=== PATIENT | female | born 1975 | race Caucasian/White ===

== ENCOUNTER → 2018-11-04 | Outpatient (CLI) | payer BC ==
--- NOTE | 2018-11-04 12:35 | ECHOS ---
STRESS ECHOCARDIOGRAM INDICATIONS: Chest pain. MEDICATIONS: Synthroid BASELINE HEART RATE: 82 BASELINE BLOOD PRESSURE: 117/64 MAXIMUM HEART RATE: 172 MAXIMUM BLOOD PRESSURE: 135/61 85% MPHR: 152 100% MPHR: 179 METS: 10.1 MAXIMUM STAGE REACHED: 3 TOTAL EXERCISE TIME: 9:00 CLINICAL INFORMATION: Heart rate 82, pressure is 117/64 mmHg. Baseline EKG showed sinus mechanism. The patient exercised on the treadmill according to [place] protocol for a total of 9 minutes and achieved 10.1 METS. Max heart rate was 172, which is about 96% of maximum predicted heart rate. Maximum blood pressure was 135/61 mmHg. Clinically, the patient did not have any symptoms of chest pain or chest discomfort during the testing or on recovery and the EKG did not show any significant ST or T-wave abnormalities concerning for ischemia. Echocardiogram images: On echocardiogram images from parasternal long axis view, parasternal short axis view, apical 4-chamber and apical 2-chamber views were obtained as the baseline images, at peak heart rate as well as on recovery. The echocardiogram images showed excellent augmentation in the left ventricular systolic function without any evidence of any wall motion abnormalities. CONCLUSION: 1. Excellent exercise tolerance. 2. Normal EKG in response to exercise. 3. Excellent augmentation in the blood pressure and heart rate in response to exercise. 4. Normal echocardiogram in response to exercise. 5. Essentially normal stress test for the patient. MMODL / IJN: [id number] /
== END ==
LOC: RADNMMAIN 09:13
PROVIDERS: ATTEND Family Medicine
DX: R07.89 Other chest pain (principal)
CPT/HCPCS: 93351

== ENCOUNTER → 2018-11-25 | Outpatient (CLI) | payer BC ==
--- NOTE | 2018-11-29 09:22 | MM ---
Reason for exam: screening (asymptomatic). Last mammogram was performed 10 years ago. History: Patient had first child at age 33. Family history of breast cancer in maternal aunt, breast cancer in maternal cousin at age 40, and breast cancer in paternal aunt. Taking hormonal contraceptives for 4 months. Physical Findings: A clinical breast exam by your physician is recommended on an annual basis and results should be correlated with mammographic findings. MG 3D Screening Mammo W/Cad Bilateral CC and MLO view(s) were taken. Prior study comparison: November 29, 2008, bilateral diagnostic digital mammog. The breast tissue is heterogeneously dense. This may lower the sensitivity of mammography. There is no discrete abnormality. ASSESSMENT: Negative, BI-RAD 1 RECOMMENDATION: Routine screening mammogram of both breasts in 1 year.
== END | disposition home or self-care (01) ==
LOC: RADMAMWWP 08:25
PROVIDERS: ATTEND Obstetrics & Gynecology
DX: Z12.31 Encounter for screening mammogram for malignant neoplasm of breast (principal); Z80.3 Family history of malignant neoplasm of breast
CPT/HCPCS: 77063; 77067

== ENCOUNTER → 2019-03-28 | Outpatient (CLI) | payer BC ==
--- NOTE | 2019-03-29 09:22 | USB ---
Reason for exam: clinical finding. History: Patient had first child at age 33. Family history of breast cancer in maternal aunt, breast cancer in maternal cousin at age 40, and breast cancer in paternal aunt. Taking hormonal contraceptives for 4 months. Physical Findings: Nurse did not find any significant physical abnormalities on exam. US Breast LT Left complete breast ultrasound includes all four quadrants, the retroareolar region and axilla. Finding demonstrates no cystic or solid lesion seen. No abnormality at the 12 o'clock palpable site. These results were verbally communicated with the patient and result sheet given to the patient on 03/28/19. ASSESSMENT: Benign, BI-RAD 2 RECOMMENDATION: Return to routine screening mammogram schedule for both breasts. Back on schedule for November 2019.
== END | disposition home or self-care (01) ==
LOC: RADUSWWP 14:48
PROVIDERS: ATTEND Obstetrics & Gynecology
DX: N63.20 Unspecified lump in the left breast, unspecified quadrant (principal)

== ENCOUNTER → 2020-03-22 | Outpatient (CLI) | payer BC ==
--- NOTE | 2020-03-25 10:05 | MM ---
Reason for exam: screening (asymptomatic). Last mammogram was performed 1 year and 4 months ago. History: Patient had first child at age 33. Family history of breast cancer in maternal aunt, breast cancer in maternal cousin at age 40, and breast cancer in paternal aunt. Took hormonal contraceptives for 1 year 4 months. Physical Findings: A clinical breast exam by your physician is recommended on an annual basis and results should be correlated with mammographic findings. MG Screening Mammo w CAD Bilateral CC and MLO view(s) were taken. Prior study comparison: November 25, 2018, bilateral MG 3d screening mammo w/cad. November 29, 2008, bilateral diagnostic digital mammog. The breast tissue is heterogeneously dense. This may lower the sensitivity of mammography. There is no discrete abnormality. No significant changes when compared with prior studies. ASSESSMENT: Negative, BI-RAD 1 RECOMMENDATION: Routine screening mammogram of both breasts in 1 year.
== END | disposition home or self-care (01) ==
LOC: RADMAMWWP 13:35
PROVIDERS: ATTEND Obstetrics & Gynecology
DX: Z12.31 Encounter for screening mammogram for malignant neoplasm of breast (principal)
CPT/HCPCS: 77067

== ENCOUNTER → 2020-08-29 | Outpatient (CLI) | payer BC ==
[2020-08-29 15:16] VITALS: BP 121/83; PULSE 85; RESP 16; TEMP 99; BMI 36.1
[2020-08-29 16:07] LABS: HCT 42.6 % (34.0-46.0); HGB 14.6 gm/dL (11.4-16.0); MCH 29.5 pg (25.0-35.0); MCHC 34.3 g/dL (31.0-37.0); MCV 85.8 fL (80.0-100.0); Mean Platelet Volume 6.8; Platelet Count 289 k/uL (150-450); RBC 4.96 m/uL (3.80-5.40); RDW 12.9 % (11.5-15.5); WBC 7.6 k/uL (3.8-10.6)
--- NOTE | 2020-08-29 16:52 | P.HPBAR ---
Bariatric H&P - History & Physicial H&P Date: 08/29/20 History & Physicial: Visit/CC: Initial Patient initial contact: Initial weight: 103.107 kg Initial weight in pounds: 227.31 Height: 5 ft 6.5 in Initial BMI: 36.1 Last weight: Current weight: 103.107 kg Current weight in pounds: 227.31 Current BMI: 36.1 [place] body weight (based on NIH guidelines): 60.101 kg Excess body weight loss: 0.0% The patient is a 45 year-old F who presents for Bariatric Assessment. [age] female presents with complaints of morbid obesity. She is interested in surgical weight loss. Patient has been considering weight loss surgery for many years. She went to a seminar first 2 years ago and then another recent seminar. The patient suffers from chronic knee and hip pain, urinary incontinence, reflu x. Takes antacids occasionally. No history of DVT or dysphagia. Surgical history in the abdomen include . No tobacco use. BMI 36.1. Review of Systems The patient denies any acute changes in vision or hearing, no dysphagia or odynophagia, no chest pain or shortness of breath, no dysuria or hematuria, no headache, no runny nose, no rectal bleeding or melena, no unexplained weight loss Past Medical History History of Any Multi-Drug Resistant Organisms: None Reported Smoking Status: Never smoker Surgical - Exam Vital Signs Temp Pulse Resp BP 99.0 F 85 16 121/83 08/29/20 15:05 08/29/20 15:05 08/29/20 15:05 08/29/20 15:05 Physical exam: General: Well-developed, well-nourished HEENT: Normocephalic, sclerae nonicteric Abdomen: Nontender, nondistended Extremities: No edema Neuro: Alert and oriented Results - Labs 08/29/20 15:40 Bariatric Assessment & Plan (1) Severe obesity Narrative/Plan: 45-year-old female with severe obesity. Risks and benefits of both sleeve gastrectomy and gastric bypass discussed in detail. Patient requires 3 month supervised weight loss. We'll tentatively plan EGD 2 months from now. Status: Acute Bariatric Checklist Checklist: Plan: Checklist: EGD: 1. Hiatal hernia: 2. H. Pylori: HgbA1c: Vitamin D: Smoking: Primary care physician referral: Martín Psychiatry clearance: Cardiology clearance: Sleep study: Diet journal: VTE risk score: VTE risk level: Rehab needs at discharge:
[2020-08-30 03:04] LABS: Albumin 4.4 g/dL (3.80-4.90); Albumin/Globulin Ratio 1.52 (1.60-3.17); Anion Gap 11.7 mmol/L (4.00-12.00); BUN/Creat Ratio 17.14 Ratio (12.00-20.00); Calcium 9.2 mg/dL (8.7-10.3); Carbon Dioxide 22.3 mmol/L (21.6-31.8); Globulin 2.9 g/dL (1.6-3.3); Non-African American GFR(CKD) 106.1 (60.0-200.0); Potassium 4.2 mmol/L (3.5-5.5); Total Bilirubin 0.3 mg/dL (0.2-1.2); Total Protein 7.3 g/dL (6.2-8.2)
[2020-08-30 03:13] LABS: Folate, Serum 9.6 ng/mL
[2020-08-30 07:32] LABS: Hemoglobin A1C 5.6 % (4.0-6.0)
== END ==
LOC: BARWHC3 14:49
PROVIDERS: ATTEND Surgery
DX: E66.01 Morbid (severe) obesity due to excess calories (principal); K90.89 Other intestinal malabsorption; E55.9 Vitamin D deficiency, unspecified; Z71.51 Drug abuse counseling and surveillance of drug abuser; Z68.36 Body mass index [BMI] 36.0-36.9, adult
CPT/HCPCS: 36415; 80053; 80323; 82306; 82607; 82746; 83036; 83540; 84425; 85027; 93005; 99202

== ENCOUNTER → 2020-11-18 | Outpatient (CLI) | payer BC ==
--- NOTE | 2020-11-18 09:13 | MM ---
Reason for exam: clinical finding. Last mammogram was performed 8 months ago. History: Patient had first child at age 33. Family history of breast cancer in maternal aunt, breast cancer in maternal cousin at age 40, and breast cancer in paternal aunt. Took hormonal contraceptives for 1 year 4 months. Physical Findings: Nurse did not find any significant physical abnormalities on exam. MG 3D Diag Mammo W/Cad LT CC, MLO, and XCCL view(s) were taken of the left breast. Prior study comparison: March 22, 2020, bilateral MG screening mammo w CAD. November 25, 2018, bilateral MG 3d screening mammo w/cad. The breast tissue is heterogeneously dense. This may lower the sensitivity of mammography. There is no discrete abnormality including area of concern. No significant new findings when compared with previous films. These results were verbally communicated with the patient and result sheet given to the patient on 11/18/20. ASSESSMENT: Incomplete: need additional imaging evaluation, BI-RAD 0 RECOMMENDATION: Ultrasound of the left breast. (area of concern)
--- NOTE | 2020-11-18 09:16 | USB ---
Reason for exam: additional evaluation requested from abnormal screening. History: Patient had first child at age 33. Family history of breast cancer in maternal aunt, breast cancer in maternal cousin at age 40, and breast cancer in paternal aunt. Took hormonal contraceptives for 1 year 4 months. US Breast Limited LT Technologist: Seema Esquivel Left limited breast ultrasound including focal area of concern, retroareolar and axilla demonstrates a 0.9cm lymph node, short axis at the axilla. No cystic or solid lesion seen. Scanned 11-1 o'clock. Compared to 03/28/19 ultrasound. These results were verbally communicated with the patient and result sheet given to the patient on 11/18/20. ASSESSMENT: Benign, BI-RAD 2 RECOMMENDATION: Return to routine screening mammogram schedule for both breasts. Back on schedule for February 2021. Manage on a clinical basis with regard to palpable region.
== END | disposition home or self-care (01) ==
LOC: RADMAMWWP 07:42
PROVIDERS: ATTEND Obstetrics & Gynecology
DX: R92.2 Inconclusive mammogram (principal); Z80.3 Family history of malignant neoplasm of breast; Z79.3 Long term (current) use of hormonal contraceptives
CPT/HCPCS: 77061; 77065

== ENCOUNTER → 2022-02-12 | Outpatient (CLI) | payer BC ==
--- NOTE | 2022-02-13 07:43 | MM ---
Reason for Exam: Screening (asymptomatic). Last mammogram was performed 1 year(s) and 11 month(s) ago. Patient History: Menarche at age 14. First Full-Term at age 33. Late child-bearing (after 32). Hormonal Contraceptives for 1 year, 4 months. Maternal cousin had breast cancer, age 40. Paternal aunt had breast cancer. Maternal aunt had breast cancer. Last menstrual period: 12/06/2021 Risk Values: [place]ou 5 year model risk: 1.1%. NCI Lifetime model risk: 13.1%. Prior Study Comparison: 11/25/2018 Bilateral Screening Mammogram, [facility]. 03/22/2020 Bilateral Screening Mammogram, [facility]. 11/18/2020 Left Diagnostic Mammogram, [facility]. Tissue Density: There are scattered fibroglandular densities. Findings: Analyzed By CAD. There is no suspicious group of microcalcifications or new suspicious mass in either breast. Overall Assessment: Negative, BI-RAD 1 Management: Screening Mammogram of both breasts in 1 year. A clinical breast exam by your physician is recommended on an annual basis and results should be correlated with mammographic findings. Electronically signed and approved by: New Robertson M.D.
== END | disposition home or self-care (01) ==
LOC: RADMAMWWP 16:23
PROVIDERS: ATTEND Obstetrics & Gynecology
DX: Z12.31 Encounter for screening mammogram for malignant neoplasm of breast (principal); Z80.3 Family history of malignant neoplasm of breast
CPT/HCPCS: 77063; 77067

== ENCOUNTER → 2022-02-13 | Outpatient (CLI) | payer BC ==
[2022-02-13 15:10] LABS: Basophils # (A) 0.06 X 10*3/uL (0.00-0.10); Eosinophils # (A) 0.49 X 10*3/uL (0.04-0.35); Eosinophils % (A) 8.1 %; HCT 43.4 % (37.2-46.3); HGB 14.7 g/dL (12.0-15.0); Immature Grans, Automated 0.2 %; Lymphocytes # (A) 2.34 X 10*3/uL (0.90-5.00); Lymphocytes % (A) 38.8 %; MCH 28.4 pg (27.0-32.0); MCHC 33.9 g/dL (32.0-37.0); MCV 83.8 fL (80.0-97.0); Mean Platelet Volume 9.7 fL (9.5-12.2); Monocytes # (A) 0.36 X 10*3/uL (0.20-1.00); NRBC Per 100 WBC 0 /100 WBCS (0.0-0.0); Neutrophils # (A) 2.77 X 10*3/uL (1.80-7.70); Neutrophils % (A) 45.9 %; Platelet Count 346 X 10*3/uL (140-440); RBC 5.18 X 10*6/uL (4.10-5.20); RDW 12.8 % (11.5-14.5); WBC 6.03 X 10*3/uL (4.50-10.00)
[2022-02-13 15:35] LABS: African American GFR (CKD) 127.4 (60.0-200.0); Albumin 4.6 g/dL (3.8-4.9); Albumin/Globulin Ratio 1.7 (1.60-3.17); Anion Gap 9.5 mmol/L (10.00-18.00); BUN/Creat Ratio 17.56 Ratio (12.00-20.00); Blood Urea Nitrogen 10.8 mg/dL (9.0-27.0); Calcium 9.9 mg/dL (8.7-10.3); Globulin 2.7 g/dL (1.6-3.3); Potassium 4.5 mmol/L (3.5-5.5); T4, Free (Free Thyroxine) 1.32 ng/dL (0.800-1.800); Total Bilirubin 0.5 mg/dL (0.30-1.20); Total Protein 7.3 g/dL (6.2-8.2)
== END | disposition home or self-care (01) ==
LOC: LABWHC1 10:08
PROVIDERS: ATTEND Family Medicine
DX: N95.1 Menopausal and female climacteric states (principal); R53.83 Other fatigue
CPT/HCPCS: 36415; 80053; 83001; 83002; 84439; 84443; 85025